=== PATIENT | male | born 1995 | race Caucasian/White ===

== ENCOUNTER 2019-02-19 01:20 | Emergency (ER) | payer OTHER ==
[2019-02-19 01:35] VITALS: BP 123/69
[2019-02-19] MEDS ORDERED: oxyCODONE /ACETAMINOPHEN 5-325MG TAB PO ONE (02:34)
[2019-02-19] MEDS ORDERED: KETOROLAC 30 MG/1 ML INJ IM ONE (02:34)
--- NOTE | 2019-02-19 02:37 | Emergency Department Report ---
ED Back Pain/Injury HPI - General Chief Complaint: Back Pain/Injury Stated Complaint: LOWER BACK W/ RT SIDE PAIN Time Seen by Provider: 02/19/19 02:33 Source: patient Limitations: No Limitations - History of Present Illness Initial Comments: Mr. Lopez is a 23 yo male without significant past medical hx who presents with severe right flank pain sudden onset while asleep. Pain 10/10 initially sharp now dull. No radiation. No fever. No vomiting. Too painful to drive. Needed to take a car sharing service to the ED. MD Complaint: back pain -: Sudden, During the night Similar Symptoms Previously: No Place: home Radiation: none Severity: severe Severity scale (0 -10): 10 Quality: sharp, dull Consistency: other (slightly improved with ibuprofen) Improves With: none Worsens With: none Context: other (sudden onset while asleep) Associated Symptoms: denies other symptoms - Related Data Previous Rx's Medication Instructions Recorded Last Taken Type Tamsulosin [Flomax] 0.4 mg PO QDAY 5 Days #5 cap 02/19/19 Unknown Rx oxyCODONE /ACETAMINOPHEN [Percocet 1 tab PO Q6HR PRN #15 tablet 02/19/19 Unknown Rx 5/325] Allergies Allergy/AdvReac Type Severity Reaction Status Date / Time nash pepper Allergy Itching Uncoded 02/19/19 01:42 vinegar Allergy Itching Uncoded 02/19/19 01:42 ED Review of Systems ROS: Stated complaint: LOWER BACK W/ RT SIDE PAIN Other details as noted in HPI Comment: All other systems reviewed and negative Constitutional: denies: fever, malaise Respiratory: denies: cough Cardiovascular: denies: chest pain Gastrointestinal: denies: abdominal pain, nausea, vomiting ED Past Medical Hx - Past Medical History Previous Medical History?: No - Surgical History Past Surgical History?: Yes Additional Surgical History: L foot sx, 2008 - Social History Smoking Status: Never Smoker Substance Use Type: None - Medications Home Medications: Home Medications Medication Instructions Recorded Confirmed Last Taken Type Tamsulosin [Flomax] 0.4 mg PO QDAY 5 Days #5 cap 02/19/19 Unknown Rx oxyCODONE /ACETAMINOPHEN [Percocet 1 tab PO Q6HR PRN #15 tablet 02/19/19 Unknown Rx 5/325] ED Physical Exam - General Limitations: No Limitations General appearance: alert, in no apparent distress, other (appears comfortable, fluid movement and transfer with ease) - Head Head exam: Present: atraumatic, normocephalic - Eye Eye exam: Present: normal appearance - ENT ENT exam: Present: mucous membranes moist - Neck Neck exam: Present: normal inspection, full ROM - Respiratory Respiratory exam: Present: normal lung sounds bilaterally. Absent: respiratory distress, wheezes, rales, rhonchi - Cardiovascular Cardiovascular Exam: Present: regular rate, normal rhythm, normal heart sounds. Absent: systolic murmur, diastolic murmur, rubs, gallop - GI/Abdominal GI/Abdominal exam: Present: soft, normal bowel sounds. Absent: distended, tenderness, guarding, rebound - Rectal Rectal exam: Present: deferred - Extremities Exam Extremities exam: Present: normal inspection - Back Exam Back exam: Present: normal inspection, full ROM. Absent: tenderness, CVA tenderness (R), CVA tenderness (L), muscle spasm, paraspinal tenderness, vertebral tenderness - Neurological Exam Neurological exam: Present: alert, oriented X3 - Psychiatric Psychiatric exam: Present: normal affect, normal mood - Skin Skin exam: Present: warm, dry, intact, normal color. Absent: rash ED Course Vital Signs 02/19/19 01:25 Temperature 98.0 F Pulse Rate 62 Respiratory 18 Rate Blood Pressure 123/69 O2 Sat by Pulse 96 Oximetry ED Medical Decision Making - Radiology Data Radiology results: report reviewed, image reviewed CT: 3 mm ureteral stone with mild obstruction 1 mm calyceal stone - Medical Decision Making Mr. Lopez presents with acute right flank, renal colic, 3 mm ureteral kidney stone Pain is now 1/10 after IM ketorolac and percocet. 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 He understands that he can not work or drive under the influence of percocet. He did receive a urology referral. Critical care attestation.: If time is entered above; I have spent that time in minutes in the direct care of this critically ill patient, excluding procedure time. ED Disposition Clinical Impression: Renal colic on right side, Kidney stone on right side Disposition: TO HOME OR SELFCARE Is pt being admited?: No Does the pt Need Aspirin: No Condition: Stable Instructions: Kidney Stones (ED) Prescriptions: Tamsulosin [Flomax] 0.4 mg PO QDAY 5 Days #5 cap oxyCODONE /ACETAMINOPHEN [Percocet 5/325] 1 tab PO Q6HR PRN #15 tablet PRN Reason: Pain Referrals: SANDER HAHN MD [Staff Physician] - 2-3 Days Forms: Work/School Release Form(ED)
--- NOTE | 2019-02-19 03:21 | Cat Scan Report ---
CT abdomen pelvis wo con INDICATION: right flank pain. TECHNIQUE: All CT scans at this location are performed using the following dose modulation technique: Automated exposure control. CONTRAST: None. COMPARISON: None available. CT abdomen: Evaluation the parenchymal organs demonstrates diffuse fatty infiltration of the liver. T here is mild distention of the right renal collecting system and ureter extending the level of a 3 mm stone at the level of L3. There is also a 1 mm nonobstructing calyceal stone. The remaining parenchy mal organs are Negative for abdominal mass, fluid or inflammation. The bowel is not dilated or thickened. CT PELVIS: Sigmoid diverticula are noninflamed. A normal appendix is identified. Negative for pelvic mass, fluid or inflammation. IMPRESSION: 1. 3 mm stone left ureter at L3 with mild obstruction. 2. 1 mm nonobstructing right calyceal stone. 3. Fatty liver. 4. Noninflamed colonic diverticulosis. Signer Name: Ras Deluna MD Signed: 02/19/2019 3:17 AM Workstation Name: [id number]
[2019-02-19] MEDS ORDERED: TAMSULOSIN 0.4 MG CAP PO ONE (03:40)
[2019-02-19] MEDS ORDERED: oxyCODONE /ACETAMINOPHEN 5-325MG TAB PO PRN (03:40)
== END 2019-02-19 03:57 | disposition home or self-care (01) ==
LOC: ED 01:20
DX: N20.0 Calculus of kidney (principal); Z91.018 Allergy to other foods; Z79.899 Other long term (current) drug therapy
CPT/HCPCS: 74176; 96372; 99283; J1885